=== PATIENT | female | born 1990 | race American Indian/Alaskan Native ===

== ENCOUNTER 2019-01-12 17:02 | Outpatient (CLI) | payer MEDICAID ==
[2019-01-12 17:56] LABS: Bacteria,Urine 1+ /HPF (Negative); Bilirubin,Urine NEG (Negative); Blood,Urine NEG (Negative); Color,Urine Yellow (Yellow); Mucus,Urine FEW /HPF; Protein,Urine <15 mg/dL mg/dL (Negative)
[2019-01-12 18:02] LABS: Amphetamine Screen,Urine PRESUMPTIVE NEGATIVE; Benzodiazepines Screen,Urine PRESUMPTIVE NEGATIVE; Cannabinoid Screen,Urine PRESUMPTIVE NEGATIVE; Cocaine Screen,Urine PRESUMPTIVE NEGATIVE; Methadone Screen,Urine PRESUMPTIVE NEGATIVE; Opiate Screen,Urine PRESUMPTIVE NEGATIVE
[2019-01-12] MEDS ORDERED: LACTATED RINGERS 1,000 ML ONE (20:01)
[2019-01-12 20:54] VITALS: BP 120/61
[2019-01-12] MEDS ORDERED: LACTATED RINGERS 1,000 ML IV ONE (20:57)
--- NOTE | 2019-01-12 22:38 | Ultrasound Report ---
PROCEDURE: US RENAL BILAT TECHNIQUE: Real-time sonography in multiple planes of the kidneys, ureters and urinary bladder was p erformed with image documentation. HISTORY: lower backpain COMPARISONS: None . FINDINGS: RIGHT kidney: There is mild degree dilatation of the right collecting system. There are no calculi. P arenchymal echotexture is normal. Length: 12.7 x,5.5 x 5.9 cm. LEFT kidney: Normal echotexture. No focal renal mass, calculus, or hydronephrosis. Length: 12.5 x 6 .4 x 6 cm. Bladder: Normal. No distention or wall thickening. IMPRESSION: Mildly greater dilatation of right collecting system is within normal limits. Otherwise unremarkable study. This document is electronically signed by Finesse Chua MD., January 12 2019 10:36:48 PM ET
--- NOTE | 2019-01-12 22:44 | Ultrasound Report ---
PROCEDURE: US OB >= 14 WEEKS FETUS TECHNIQUE: Real-time transabdominal sonography of the uterus, placenta, amniotic fluid, adnexa, and fetus was performed with image documentation. Measurements were obtained to determine age/size. M-mode Doppler was used to document heartbeat. ADDITIONAL GESTATION: None HISTORY: lower backpain COMPARISONS: None. FINDINGS: MATERNAL: Uterus and cervix: The cervix is closed measures 6.2 cm in length. Adnexa and ovaries: Not visualized. IUP: Single live intrauterine gestation. Position: Cephalic Placental position: Fundal, without previa . Amniotic fluid volume Normal. JOANIE is 24 cm. Cardiac activity: Regular rhythm at 121 bpm. BIOMETRY: Biparietal diameter: 6 cm corresponding to 24 weeks and 4 days. Head circumference: 21.9 cm corresponding to 23 weeks and 6 days. abdominal circumference: 20.1 cm corresponding to 24 weeks and 5 days. Femur length: 4.5 cm corresponding to 25 weeks and 0 days. Ratio biometry: Normal . Estimated Weight: 728 grams +/- 108 grams. ounces +/- .ounces. . percentile. Mean Gestational Age (composite criteria) based on today's measurements: 24 weeks and 4 days. Estimated Due Date (earliest scan): 04/30/2019. IMPRESSION: Single live intrauterine gestation at 21 weeks and 4 days. Estimated due date: 04/30/2019. No obvious abnormality identified This document is electronically signed by Finesse Chua MD., January 12 2019 10:42:36 PM ET
== END 2019-01-12 23:00 | disposition left against medical advice (07) ==
LOC: TRG 17:02
PROVIDERS: ATTEND Obstetrics & Gynecology
DX: O26.892 Other specified pregnancy related conditions, second trimester (principal); M54.5 Low back pain; O47.02 False labor before 37 completed weeks of gestation, second trimester; O16.2 Unspecified maternal hypertension, second trimester; Z3A.24 24 weeks gestation of pregnancy
CPT/HCPCS: 76770; 76805; 80307; 81001; 96360; 96361; J7120